=== PATIENT | female | born 1995 | race Caucasian/White ===

== ENCOUNTER 2020-07-28 05:46 | Inpatient (IN) ==
[2020-07-28] MEDS ORDERED: Ringers Solution, Lactated 1,000 ML IVC ONE ×2 (06:02→13:01)
[2020-07-28] MEDS ORDERED: Famotidine 20 MG/2 ML VIAL IVP ONE (06:02)
[2020-07-28] MEDS ORDERED: Metoclopramide 10 MG/2 ML VIAL IVP ONE (06:02)
[2020-07-28] MEDS ORDERED: CeFAZolin Syr 3,000MG/30 ML 3,000 MG/30 ML SYRINGE IVPB ONE (06:02)
[2020-07-28] MEDS ORDERED: *HR* FentaNYL (PF) 100 MCG/2 ML VIAL ONE ×2 (06:14→09:02)
[2020-07-28] MEDS ORDERED: *HR* Morphine Sulfate/PF 10 MG/10 ML AMPUL ONE (06:14)
[2020-07-28] MEDS ORDERED: Ringers Solution, Lactated 1,000 ML IVC SCH (06:15)
[2020-07-28 06:26] LABS: Basophils # 0.1 K/mcL (0.0-0.2); Basophils % 0.3 %; Eosinophils # 0.1 K/mcL (0.0-0.6); Eosinophils % 0.8 %; Hematocrit 38.9 % (35.3-44.9); Hemoglobin 12.6 g/dL (11.5-15.4); Immature Granulocytes % 1.8 % (0-4); Lymphocytes # 2.2 K/mcL (0.6-4.6); Lymphocytes % 13.8 %; Mean Corpuscular HGB Conc 32.4 g/dL (31.6-35.5); Mean Corpuscular Hemoglobin 29.6 pg (28.0-33.3); Mean Corpuscular Volume 91.5 fL (83.0-100.0); Mean Platelet Volume 10.4 fL (9.4-12.4); Monocytes # 0.9 K/mcL (0.0-1.3); Monocytes % 5.7 %; Neutrophils # 12.3 K/mcL (1.6-8.9); Platelet Count 293 K/mcL (140-400); Red Blood Count 4.25 M/mcL (3.82-4.97); Red Cell Distribution Width 14.4 % (11.5-14.5); Segmented Neutrophils % 77.6 %; White Blood Count 15.9 K/mcL (4.3-11.1)
[2020-07-28 06:54] LABS: Amphetamine Screen,Urine Negative ng/mL (Cutoff=1000); Barbiturate Screen,Urine Negative ng/mL (Cutoff=200)
[2020-07-28 06:55] LABS: Benzodiazepines Screen,Urine Negative ng/mL (Cutoff=300); Cannabinoid Screen,Urine Positive ng/mL (Cutoff = 50); Cocaine Screen,Urine Negative ng/mL (Cutoff= 300); Opiate Screen,Urine Negative ng/mL (Cutoff=300); Phencyclidine Screen,Urine Negative ng/mL (Cutoff=25)
[2020-07-28] MEDS ORDERED: Acetaminophen IV 1,000 MG/100 ML BAG IVPB ONE (07:18)
[2020-07-28] MEDS ORDERED: Ketorolac 30 MG/ML VIAL ONE (07:18)
[2020-07-28] MEDS ORDERED: Ondansetron 4 MG/2 ML VIAL ONE (07:18)
[2020-07-28] MEDS ORDERED: EPHEDrine 50 MG/ML VIAL ONE (07:19)
[2020-07-28] MEDS ORDERED: Oxytocin 20 units/ LR 1000 mL 20 UNIT/1,000 ML BAG IVC ONE (07:48)
[2020-07-28] MEDS ORDERED: *HR* OxyCODONE Immed Rel 5 MG TABLET PO PRN (08:51)
[2020-07-28] MEDS ORDERED: *HR* HYDROmorphone PF 0.5 MG/0.5 ML SYRINGE IVP PRN (08:51)
[2020-07-28] MEDS ORDERED: Ondansetron 4 MG/2 ML VIAL IVP PRN ×2 (08:51→12:44)
[2020-07-28] MEDS ORDERED: *HR* Midazolam HCl 2 MG/2 ML VIAL ONE (08:56)
[2020-07-28] MEDS ORDERED: Heparin PF 300 UNIT/3 ML 250 UNIT in D10% in Water 500 ML IVC SCH (10:00)
[2020-07-28] MEDS ORDERED: Metoclopramide 10 MG/2 ML VIAL IVP PRN (12:44)
[2020-07-28] MEDS ORDERED: 0.9 % Sodium Chloride 1,000 ML IVC SCH (12:44)
[2020-07-28] MEDS ORDERED: Simethicone 80 MG TAB.CHEW PO PRN (12:44)
[2020-07-28] MEDS ORDERED: Naloxone 0.4 MG/ML INJ IVP PRN (12:44)
[2020-07-28] MEDS ORDERED: Sennosides 8.6 MG TABLET PO PRN (12:44)
[2020-07-28] MEDS: Oxytocin 20 units/ LR 1000 mL 20 UNIT/1,000 ML BAG IVC SCH ×2 (13:03→13:14)
[2020-07-28] MEDS: Acetaminophen 325 MG TABLET PO PRN (13:25)
[2020-07-28] MEDS: *HR* OxyCODONE Immed Rel 5 MG TABLET PO PRN ×2 (14:54→20:15)
[2020-07-28] MEDS: Ibuprofen 600 MG TABLET PO PRN (18:55)
[2020-07-29] MEDS: *HR* OxyCODONE Immed Rel 5 MG TABLET PO PRN ×3 (00:46→13:19)
[2020-07-29] MEDS: Ibuprofen 600 MG TABLET PO PRN ×2 (00:46→07:18)
[2020-07-29] MEDS: Acetaminophen 325 MG TABLET PO PRN ×2 (03:42→10:42)
[2020-07-29 04:35] LABS: Basophils % 0.2 %; Eosinophils % 0.1 %; Hematocrit 35.6 % (35.3-44.9); Hemoglobin 11.4 g/dL (11.5-15.4); Immature Granulocytes % 1.2 % (0-4); Lymphocytes # 2.7 K/mcL (0.6-4.6); Lymphocytes % 13.1 %; Mean Corpuscular Hemoglobin 29.5 pg (28.0-33.3); Mean Corpuscular Volume 92.2 fL (83.0-100.0); Mean Platelet Volume 10.2 fL (9.4-12.4); Monocytes # 1.3 K/mcL (0.0-1.3); Monocytes % 6.2 %; Platelet Count 321 K/mcL (140-400); Red Blood Count 3.86 M/mcL (3.82-4.97); Red Cell Distribution Width 14.1 % (11.5-14.5); Segmented Neutrophils % 79.2 %; White Blood Count 20.2 K/mcL (4.3-11.1)
[2020-07-29] MEDS ORDERED: NON-FORMULARY MEDICATION 1 EACH EACH (Prenatal Caplet 1 TAB) PO SCH (09:00)
[2020-07-29] MEDS ORDERED: Prenatal Vit/FA 1 EACH TABLET PO SCH (09:00)
[2020-07-29] MEDS ORDERED: NON-FORMULARY MEDICATION 1 EACH EACH (Ferrous Sulfate 325 MG) PO SCH (09:00)
[2020-07-29 10:24] VITALS: BP 143/75
== END 2020-07-29 13:20 | disposition home or self-care (01) | DRG 785 ==
LOC: 1NENULAB 05:46 → EDSTATUS 07:45 → 1NENUOBS 12:10 → 1NENUPED 19:58
PROVIDERS: ADMIT Obstetrics & Gynecology; ATTEND Obstetrics & Gynecology